=== PATIENT | male | born 1990 | race Caucasian/White ===

== ENCOUNTER 2021-06-22 01:17 | Emergency (ER) | payer BC, OTHER ==
[2021-06-22] MEDS ORDERED: Sodium Chloride 0.9% 10 ML Syringe FLUSH PRN (01:31)
[2021-06-22 02:32] LABS: ANION GAP 11.2 meq/L (7-15); CHLORIDE,CL 101 mmol/L (98-107); SODIUM,NA 141 mmol/L (136-145)
[2021-06-22] MEDS ORDERED: Lactated Ringers 1,000 ML IV ONE (02:55)
== END 2021-06-22 05:05 | disposition home or self-care (01) ==
LOC: LL.ED 01:17
DX: R06.02 Shortness of breath (principal); E86.0 Dehydration; R74.8 Abnormal levels of other serum enzymes; R94.31 Abnormal electrocardiogram [ECG] [EKG]
CPT/HCPCS: 36415; 80053; 82550; 82947; 83605; 83735; 84100; 84484; 85025; 85379; 86140; 93005; 99285; J7120